=== PATIENT | male | born 1965 | race Caucasian/White ===

== ENCOUNTER 2025-02-13 18:09 | Inpatient (IN) | payer BC ==
[2025-02-13 18:33] VITALS: BMI 24.5
[2025-02-13] MEDS ORDERED: Senokot S 8.6-50 MG TAB PO PRN (19:54)
[2025-02-13] MEDS ORDERED: Calcium Carbonate 500 MG ChewTAB PO PRN (19:54)
[2025-02-13] MEDS ORDERED: Acetaminophen 325 MG TAB PO PRN (19:54)
[2025-02-13] MEDS ORDERED: Ondansetron PF 4 MG/2 ML Vial IVP PRN (19:54)
[2025-02-13] MEDS ORDERED: Nitroglycerin 0.4 MG TAB (25 Tab Bottle) SL PRN (19:56)
[2025-02-13] MEDS: Famotidine 20 MG TAB PO SCH (21:32)
[2025-02-14 04:02] LABS: #Basophils 0.05 10x3/uL (0.0-0.2); #Eosinophils 0.14 10x3/uL (0.0-0.7); #Monocytes 0.74 10x3/uL (0.11-0.59); #Neutrophils 5.67 10x3/uL (1.40-6.50); %Basophils 0.6 % (0.0-1.0); %Eosinophils 1.6 % (0.0-10.0); %Lymphocytes 22.1 % (21.0-51.0); %Monocytes 8.7 % (0.0-10.0); %Neutrophils 66.8 % (42.0-75.0); Hematocrit 36.9 % (42.0-52.0); Hemoglobin 12.6 g/dL (14.0-18.0); Mean Corpuscular Hemoglobin 29.4 pg (27.0-31.0); Mean Corpuscular Volume 86.2 fL (78.0-98.0); Platelet Count 237 10x3/uL (130-400); Red Blood Cell (RBC) Count 4.28 mill/uL (4.70-6.10); White Blood Cell (WBC) Count 8.50 10x3/uL (4.8-10.8)
[2025-02-14 04:21] LABS: ALT (SGPT) 19 U/L (Less than 45); AST (SGOT) 68 U/L (11-34); Albumin 3.5 g/dL (3.1-4.5); Alkaline Phosphatase 67 U/L (40-110); Anion Gap 11 mmol/L (10-20); BUN (Urea Nitrogen) 15 mg/dL (8.4-25.7); Bilirubin, Total 0.5 mg/dL (0.3-1.2); Calc. Creatinine Clearance 62 mL/min (70-130); Calcium 8.6 mg/dL (7.8-10.44); Carbon Dioxide 22 mmol/L (23-31); Cardiac Risk 5.8 (Less than 4.5); Chloride 109 mmol/L (98-107); Cholesterol 192 mg/dl (< 200 Desired); Globulin 2.6 g/dL (2.4-3.5); Glucose 100 mg/dL (80-115); HDL Cholesterol 33 mg/dL (>60 Neg Risk); LDL Cholesterol, Calculated 124 mg/dL; Magnesium 1.9 mg/dL (1.6-2.6); Potassium 3.7 mmol/L (3.5-5.1); Sodium 138 mmol/L (136-145); Triglycerides 173 mg/dL (Less than 150)
[2025-02-14] MEDS ORDERED: Non-Formulary Item 1 EACH (Topiramate [Topiramate] 50 MG Tablet) PO SCH (09:00)
[2025-02-14] MEDS: Aspirin 81 mg Enteric Coated Tablet PO SCH (09:02)
[2025-02-14] MEDS: Magnesium 2 GM/50 ML(in water) 2 GM in Premix 1 BAG IVPB SCH (09:02)
[2025-02-14] MEDS ORDERED: Communication Order-Pharmacy FS SCH (19:30)
[2025-02-15 04:33] LABS: #Basophils 0.04 10x3/uL (0.0-0.2); #Eosinophils 0.29 10x3/uL (0.0-0.7); #Monocytes 0.81 10x3/uL (0.11-0.59); #Neutrophils 4.99 10x3/uL (1.40-6.50); %Basophils 0.5 % (0.0-1.0); %Eosinophils 3.6 % (0.0-10.0); %Lymphocytes 23.5 % (21.0-51.0); %Monocytes 10.1 % (0.0-10.0); %Neutrophils 61.9 % (42.0-75.0); Hematocrit 38.8 % (42.0-52.0); Hemoglobin 12.8 g/dL (14.0-18.0); Mean Corpuscular Hemoglobin 29.2 pg (27.0-31.0); Mean Corpuscular Volume 88.4 fL (78.0-98.0); Platelet Count 236 10x3/uL (130-400); Red Blood Cell (RBC) Count 4.39 mill/uL (4.70-6.10); White Blood Cell (WBC) Count 8.05 10x3/uL (4.8-10.8)
[2025-02-15 04:47] LABS: Anion Gap 10 mmol/L (10-20); BUN (Urea Nitrogen) 16 mg/dL (8.4-25.7); Calc. Creatinine Clearance 63 mL/min (70-130); Calcium 8.6 mg/dL (7.8-10.44); Carbon Dioxide 24 mmol/L (23-31); Chloride 108 mmol/L (98-107); Glucose 94 mg/dL (80-115); Potassium 3.5 mmol/L (3.5-5.1); Sodium 138 mmol/L (136-145)
[2025-02-15] MEDS ORDERED: Lidocaine 1% (PF) 30 ML VIAL ONE (06:20)
[2025-02-15] MEDS ORDERED: Adenosine 6 mg (2 mL) VIAL ONE (06:20)
[2025-02-15] MEDS ORDERED: Heparin 10,000 UNITS/ 10 ML VIAL ONE (06:20)
[2025-02-15] MEDS ORDERED: PHENYLEPHRINE-NS 100 MCG/ML 10 ML SYRINGE ONE (06:21)
[2025-02-15] MEDS ORDERED: Nitroglycerin 50 MG/250 ML BOT 250 ML ONE (06:21)
[2025-02-15] MEDS: Potassium Chloride 20 MEQ in Premix 1 BAG IVPB SCH (09:31)
[2025-02-15] MEDS ORDERED: Iopamidol 370 76% 100 ML VIAL ONE (11:13)
[2025-02-15] MEDS ORDERED: Communication Order-Pharmacy FS SCH (18:26)
[2025-02-16 04:28] LABS: #Basophils 0.05 10x3/uL (0.0-0.2); #Eosinophils 0.26 10x3/uL (0.0-0.7); #Monocytes 0.78 10x3/uL (0.11-0.59); #Neutrophils 4.69 10x3/uL (1.40-6.50); %Basophils 0.7 % (0.0-1.0); %Eosinophils 3.5 % (0.0-10.0); %Lymphocytes 23.0 % (21.0-51.0); %Monocytes 10.4 % (0.0-10.0); %Neutrophils 62.1 % (42.0-75.0); Hematocrit 38.5 % (42.0-52.0); Hemoglobin 12.5 g/dL (14.0-18.0); Mean Corpuscular Hemoglobin 28.7 pg (27.0-31.0); Mean Corpuscular Volume 88.5 fL (78.0-98.0); Platelet Count 211 10x3/uL (130-400); Red Blood Cell (RBC) Count 4.35 mill/uL (4.70-6.10); White Blood Cell (WBC) Count 7.53 10x3/uL (4.8-10.8)
[2025-02-16 04:56] LABS: Anion Gap 12 mmol/L (10-20); BUN (Urea Nitrogen) 14 mg/dL (8.4-25.7); Calc. Creatinine Clearance 59 mL/min (70-130); Calcium 8.6 mg/dL (7.8-10.44); Carbon Dioxide 22 mmol/L (23-31); Chloride 109 mmol/L (98-107); Glucose 95 mg/dL (80-115); Potassium 4.5 mmol/L (3.5-5.1); Sodium 138 mmol/L (136-145)
[2025-02-16 07:15] LABS: Hb (HGBA1c) 3839.2139 umol/L
[2025-02-17 05:11] LABS: Anion Gap 12 mmol/L (10-20); BUN (Urea Nitrogen) 16 mg/dL (8.4-25.7); Calc. Creatinine Clearance 64 mL/min (70-130); Calcium 8.9 mg/dL (7.8-10.44); Carbon Dioxide 24 mmol/L (23-31); Chloride 105 mmol/L (98-107); Glucose 88 mg/dL (80-115); Potassium 4.1 mmol/L (3.5-5.1); Sodium 137 mmol/L (136-145)
[2025-02-17 05:42] LABS: #Basophils 0.04 10x3/uL (0.0-0.2); #Eosinophils 0.22 10x3/uL (0.0-0.7); #Monocytes 0.67 10x3/uL (0.11-0.59); #Neutrophils 4.14 10x3/uL (1.40-6.50); %Basophils 0.6 % (0.0-1.0); %Eosinophils 3.3 % (0.0-10.0); %Lymphocytes 23.5 % (21.0-51.0); %Monocytes 10.1 % (0.0-10.0); %Neutrophils 62.3 % (42.0-75.0); Hematocrit 40.1 % (42.0-52.0); Hemoglobin 13.4 g/dL (14.0-18.0); Mean Corpuscular Hemoglobin 29.3 pg (27.0-31.0); Mean Corpuscular Volume 87.7 fL (78.0-98.0); Platelet Count 243 10x3/uL (130-400); Red Blood Cell (RBC) Count 4.57 mill/uL (4.70-6.10); White Blood Cell (WBC) Count 6.64 10x3/uL (4.8-10.8)
[2025-02-18] MEDS ORDERED: PHENYLEPHRINE-NS 100 MCG/ML 10 ML SYRINGE ONE (06:36)
[2025-02-18] MEDS ORDERED: Heparin 10,000 UNITS/1 ML VIAL 30,000 UNITS in Sodium Chloride 0.9% 1,000 ML FS SCH (06:45)
[2025-02-18] MEDS ORDERED: NOREPINEPHRINE 8 MG/250 ML-D5W 250 ML ONE (07:13)
[2025-02-18] MEDS ORDERED: CEFAZOLIN 2 GM VIAL ONE (07:24)
[2025-02-18] MEDS ORDERED: PROPOFOL 20 ML ONE ×2 (07:40→10:20)
[2025-02-18] MEDS ORDERED: Rocuronium Bromide 10 MG/ML (10ML VIAL) ONE ×2 (07:41→10:22)
[2025-02-18] MEDS ORDERED: Heparin 30,000 units/30 ml VIAL ONE (08:10)
[2025-02-18] MEDS ORDERED: Thrombin 5000 UNITS/5 ML VIAL ONE (08:10)
[2025-02-18] MEDS ORDERED: Calcium Chloride 1 GM/10 ML Abboject SYRINGE ONE (08:10)
[2025-02-18] MEDS ORDERED: Glycopyrrolate 0.2 MG/ML 5 ML SYRINGE ONE (08:10)
[2025-02-18] MEDS ORDERED: Heparin 5,000 UNITS/ML VIAL ONE (08:10)
[2025-02-18] MEDS ORDERED: Cardioplegic Soln 1,000 ML BAG ONE (08:10)
[2025-02-18] MEDS ORDERED: CEFAZOLIN 1 GM VIAL ONE (11:59)
[2025-02-18] MEDS ORDERED: hydrALAZINE 20 MG/ML VIAL SLOW IVP PRN (12:54)
[2025-02-18] MEDS ORDERED: Bisacodyl 10 MG SUPP PR PRN (12:54)
[2025-02-18] MEDS ORDERED: Phenylephrine 40 MG/NS 250 ML 250 ML IVPB PRN (12:54)
[2025-02-18] MEDS ORDERED: Nitroglycerin 50 MG/250 ML BOT 250 ML IVPB PRN (12:54)
[2025-02-18] MEDS ORDERED: Guaifenesin DM 100-10/5 ML UDCUP PO PRN (12:54)
[2025-02-18] MEDS ORDERED: niCARdipine 25 MG in Sodium Chloride 0.9% 250 ML 250 ML IVPB PRN (12:54)
[2025-02-18] MEDS ORDERED: Albumin 5% 12.5 GM (250 mL) BOT IVPB PRN (12:54)
[2025-02-18] MEDS ORDERED: Mag-Al 1200 mg/1200 mg/30 ML UDCUP PO PRN (12:54)
[2025-02-18] MEDS ORDERED: Electrolyte Replacement Protocol 1 EACH FS SCH (13:00)
[2025-02-18] MEDS ORDERED: Dextrose 50% Abboject 50 ML SYRINGE SLOW IVP PRN (13:15)
[2025-02-18] MEDS ORDERED: INSULIN REGULAR IN 0.9 % NACL 100 UNITS in Premix 1 BAG IVPB SCH (13:15)
[2025-02-18] MEDS ORDERED: Glucagon 1 MG/ML KIT SC PRN (13:15)
[2025-02-18 13:29] LABS: ALV-art Gradient 285.975 mmHg (0-20); Actual Bicarbonate (HCO3a) 19.0 mEq/L (22-28); Base Excess (BEa) -7.3 mEq/L (-2.0 to +3.0); CO2 Tension 40.9 mmHg (35.0-45.0); Calcium, Ionized (arterial) 1.14 mmol/L (1.12-1.30); Hematocrit-ABG 40 % (42.0-52.0); Hemoglobin (Hb) 13.5 g/dL (14.0-18.0); O2 Tension (PaO2), arterial 90.7 mmHg (> 80.0); Potassium - ABG Lab 4.41 mmol/L (3.70-5.30); Puncture Site Arterial Line; pH, Arterial 7.284 (7.35-7.45)
[2025-02-18 13:34] LABS: #Basophils 0.07 10x3/uL (0.0-0.2); #Eosinophils 0.08 10x3/uL (0.0-0.7); #Monocytes 1.06 10x3/uL (0.11-0.59); #Neutrophils 18.08 10x3/uL (1.40-6.50); %Basophils 0.3 % (0.0-1.0); %Eosinophils 0.4 % (0.0-10.0); %Lymphocytes 9.4 % (21.0-51.0); %Monocytes 4.9 % (0.0-10.0); %Neutrophils 83.9 % (42.0-75.0); Hematocrit 37.7 % (42.0-52.0); Hemoglobin 12.5 g/dL (14.0-18.0); Mean Corpuscular Hemoglobin 29.3 pg (27.0-31.0); Mean Corpuscular Volume 88.3 fL (78.0-98.0); Platelet Count 218 10x3/uL (130-400); Red Blood Cell (RBC) Count 4.27 mill/uL (4.70-6.10); White Blood Cell (WBC) Count 21.56 10x3/uL (4.8-10.8)
[2025-02-18] MEDS: NS 0.9% w/ 20 MEQ KCL 1,000 ML IV SCH (13:39)
[2025-02-18] MEDS: Magnesium 2 GM/50 ML(in water) 2 GM in Premix 1 BAG IVPB SCH (13:39)
[2025-02-18] MEDS: Post-Op Insulin Drip Protocol IVPB ONE (13:40)
[2025-02-18] MEDS: Sodium Bicarb 50 MEQ/50 ML Abboject 8.4% SYRINGE IVP SCH (13:45)
[2025-02-18 13:49] LABS: Anion Gap 12 mmol/L (10-20); BUN (Urea Nitrogen) 19 mg/dL (8.4-25.7); Calc. Creatinine Clearance 73 mL/min (70-130); Calcium 7.8 mg/dL (7.8-10.44); Carbon Dioxide 19 mmol/L (23-31); Chloride 110 mmol/L (98-107); Glucose 152 mg/dL (80-115); Potassium 4.4 mmol/L (3.5-5.1); Sodium 137 mmol/L (136-145)
[2025-02-18 14:07] LABS: INR-International Normal Ratio 1.3; Prothrombin Time 16.6 sec (12.0-14.7)
[2025-02-18 14:08] LABS: PTT 33.9 sec (22.9-36.1)
[2025-02-18] MEDS: Albumin 5% 12.5 GM (250 mL) BOT IVPB PRN (14:15)
[2025-02-18] MEDS: NOREPINEPHRINE 8 MG/250 ML-D5W 250 ML IVPB PRN (15:19)
[2025-02-18] MEDS: Ondansetron PF 4 MG/2 ML Vial IVP PRN (15:40)
[2025-02-18 15:54] LABS: Actual Bicarbonate (HCO3a) 18.5 mEq/L (22-28); Base Excess (BEa) -8.5 mEq/L (-2.0 to +3.0); CO2 Tension 43.8 mmHg (35.0-45.0); Calcium, Ionized (arterial) 1.09 mmol/L (1.12-1.30); Hematocrit-ABG 37 % (42.0-52.0); Hemoglobin (Hb) 12.7 g/dL (14.0-18.0); O2 Tension (PaO2), arterial 73.0 mmHg (> 80.0); Potassium - ABG Lab 3.60 mmol/L (3.70-5.30); pH, Arterial 7.243 (7.35-7.45)
[2025-02-18 16:10] LABS: ALV-art Gradient 157.450 mmHg (0-20); Puncture Site Arterial Line
[2025-02-18 19:22] LABS: Hematocrit 36.2 % (42.0-52.0); Hemoglobin 12.2 g/dL (14.0-18.0)
[2025-02-18 19:31] LABS: Potassium 3.9 mmol/L (3.5-5.1)
[2025-02-18] MEDS: Famotidine/PF 20 mg/2ml Vial SLOW IVP SCH (19:50)
[2025-02-18] MEDS: Senokot S 8.6-50 MG TAB PO SCH (19:51)
[2025-02-18] MEDS: Acetaminophen 325 MG TAB PO PRN (22:26)
[2025-02-18] MEDS: Potassium Chloride 20 MEQ (100 mL) BAG IVPB PRN (23:39)
[2025-02-19 05:19] LABS: #Basophils 0.03 10x3/uL (0.0-0.2); #Eosinophils Less than 0.03 10x3/uL (0.0-0.7); #Monocytes 1.36 10x3/uL (0.11-0.59); #Neutrophils 14.98 10x3/uL (1.40-6.50); %Basophils 0.2 % (0.0-1.0); %Eosinophils 0.0 % (0.0-10.0); %Lymphocytes 4.1 % (21.0-51.0); %Monocytes 7.9 % (0.0-10.0); %Neutrophils 87.2 % (42.0-75.0); Hematocrit 35.1 % (42.0-52.0); Hemoglobin 11.4 g/dL (14.0-18.0); Mean Corpuscular Hemoglobin 28.8 pg (27.0-31.0); Mean Corpuscular Volume 88.6 fL (78.0-98.0); Platelet Count 292 10x3/uL (130-400); Red Blood Cell (RBC) Count 3.96 mill/uL (4.70-6.10); White Blood Cell (WBC) Count 17.17 10x3/uL (4.8-10.8)
[2025-02-19] MEDS: Transdermal Patch Removal TOP SCH (05:57)
[2025-02-19 06:21] LABS: Anion Gap 14 mmol/L (10-20); BUN (Urea Nitrogen) 20 mg/dL (8.4-25.7); Calc. Creatinine Clearance 62 mL/min (70-130); Calcium 8.3 mg/dL (7.8-10.44); Carbon Dioxide 21 mmol/L (23-31); Chloride 105 mmol/L (98-107); Glucose 117 mg/dL (80-115); Magnesium 2.6 mg/dL (1.6-2.6); Potassium 4.7 mmol/L (3.5-5.1); Sodium 135 mmol/L (136-145)
[2025-02-19] MEDS: Magnesium 2 GM/50 ML(in water) 2 GM in Premix 1 BAG IVPB SCH (08:18)
[2025-02-19] MEDS: Aspirin 325 MG TAB PO SCH (08:26)
[2025-02-19] MEDS: Heparin 5,000 UNITS/ML VIAL SC SCH (08:58)
[2025-02-19] MEDS ORDERED: Insulin Glargine 30 UNITS/0.3 ML VIAL SC PRN (13:10)
[2025-02-19] MEDS ORDERED: Milk Of Magnesia 30 ML UDCUP PO PRN (14:12)
[2025-02-19] MEDS ORDERED: Nitroglycerin 0.4 MG TAB (25 Tab Bottle) SL PRN (14:12)
[2025-02-19] MEDS ORDERED: Mineral Oil ENEMA PR PRN (14:12)
[2025-02-19] MEDS ORDERED: Artificial Tear Ophth Sol 15 ML BOT EA EYE PRN (14:12)
[2025-02-19] MEDS ORDERED: diphenhydrAMINE 25 MG CAP PO PRN (14:12)
[2025-02-19] MEDS ORDERED: Transdermal Patch Removal TOP SCH (21:00)
[2025-02-20 03:58] LABS: #Basophils 0.03 10x3/uL (0.0-0.2); #Eosinophils Less than 0.03 10x3/uL (0.0-0.7); #Monocytes 1.27 10x3/uL (0.11-0.59); #Neutrophils 11.93 10x3/uL (1.40-6.50); %Basophils 0.2 % (0.0-1.0); %Eosinophils 0.1 % (0.0-10.0); %Lymphocytes 7.2 % (21.0-51.0); %Monocytes 8.8 % (0.0-10.0); %Neutrophils 83.2 % (42.0-75.0); Hematocrit 32.1 % (42.0-52.0); Hemoglobin 10.3 g/dL (14.0-18.0); Mean Corpuscular Hemoglobin 28.9 pg (27.0-31.0); Mean Corpuscular Volume 90.2 fL (78.0-98.0); Platelet Count 177 10x3/uL (130-400); Red Blood Cell (RBC) Count 3.56 mill/uL (4.70-6.10); White Blood Cell (WBC) Count 14.36 10x3/uL (4.8-10.8)
[2025-02-20 04:15] LABS: Anion Gap 16 mmol/L (10-20); BUN (Urea Nitrogen) 25 mg/dL (8.4-25.7); Calc. Creatinine Clearance 58 mL/min (70-130); Calcium 8.5 mg/dL (7.8-10.44); Carbon Dioxide 25 mmol/L (23-31); Chloride 100 mmol/L (98-107); Glucose 138 mg/dL (80-115); Magnesium 2.7 mg/dL (1.6-2.6); Potassium 4.5 mmol/L (3.5-5.1); Sodium 136 mmol/L (136-145)
[2025-02-20] MEDS ORDERED: Magnesium 2 GM/50 ML(in water) 2 GM in Premix 1 BAG IVPB SCH (09:00)
[2025-02-20 11:27] VITALS: BMI 25.7
[2025-02-20] MEDS: Furosemide 40 MG (4 mL) VIAL SLOW IVP SCH (18:35)
[2025-02-21 04:56] LABS: #Basophils 0.03 10x3/uL (0.0-0.2); #Eosinophils 0.07 10x3/uL (0.0-0.7); #Monocytes 0.86 10x3/uL (0.11-0.59); #Neutrophils 8.55 10x3/uL (1.40-6.50); %Basophils 0.3 % (0.0-1.0); %Eosinophils 0.7 % (0.0-10.0); %Lymphocytes 10.4 % (21.0-51.0); %Monocytes 8.1 % (0.0-10.0); %Neutrophils 80.1 % (42.0-75.0); Hematocrit 31.2 % (42.0-52.0); Hemoglobin 10.3 g/dL (14.0-18.0); Mean Corpuscular Hemoglobin 29.1 pg (27.0-31.0); Mean Corpuscular Volume 88.1 fL (78.0-98.0); Platelet Count 197 10x3/uL (130-400); Red Blood Cell (RBC) Count 3.54 mill/uL (4.70-6.10); White Blood Cell (WBC) Count 10.66 10x3/uL (4.8-10.8)
[2025-02-21 05:14] LABS: Anion Gap 15 mmol/L (10-20); BUN (Urea Nitrogen) 24 mg/dL (8.4-25.7); Calc. Creatinine Clearance 62 mL/min (70-130); Calcium 8.4 mg/dL (7.8-10.44); Carbon Dioxide 27 mmol/L (23-31); Chloride 98 mmol/L (98-107); Glucose 110 mg/dL (80-115); Magnesium 2.3 mg/dL (1.6-2.6); Potassium 3.9 mmol/L (3.5-5.1); Sodium 136 mmol/L (136-145)
[2025-02-21] MEDS: Potassium Phosphate 22 MMOL in Sodium Chloride 0.9% 250 ML 250 ML IVPB SCH (06:36)
[2025-02-21] MEDS: Furosemide 20 MG (2 mL) VIAL SLOW IVP SCH (08:11)
[2025-02-22 03:51] LABS: #Basophils 0.06 10x3/uL (0.0-0.2); #Eosinophils 0.20 10x3/uL (0.0-0.7); #Monocytes 0.88 10x3/uL (0.11-0.59); #Neutrophils 4.82 10x3/uL (1.40-6.50); %Basophils 0.8 % (0.0-1.0); %Eosinophils 2.8 % (0.0-10.0); %Lymphocytes 16.5 % (21.0-51.0); %Monocytes 12.3 % (0.0-10.0); %Neutrophils 67.3 % (42.0-75.0); Hematocrit 37.5 % (42.0-52.0); Hemoglobin 11.7 g/dL (14.0-18.0); Mean Corpuscular Hemoglobin 29.3 pg (27.0-31.0); Mean Corpuscular Volume 93.8 fL (78.0-98.0); Platelet Count 204 10x3/uL (130-400); Red Blood Cell (RBC) Count 4.00 mill/uL (4.70-6.10); White Blood Cell (WBC) Count 7.16 10x3/uL (4.8-10.8)
[2025-02-22 04:08] LABS: Anion Gap 14 mmol/L (10-20); BUN (Urea Nitrogen) 19 mg/dL (8.4-25.7); Calc. Creatinine Clearance 74 mL/min (70-130); Calcium 8.5 mg/dL (7.8-10.44); Carbon Dioxide 20 mmol/L (23-31); Chloride 105 mmol/L (98-107); Glucose 97 mg/dL (80-115); Magnesium 2.1 mg/dL (1.6-2.6); Potassium 4.1 mmol/L (3.5-5.1); Sodium 135 mmol/L (136-145)
[2025-02-22 16:02] LABS: Bacteria/HPF None Seen HPF (None Seen); CAUTI Indications for Culture Fever or rigors; Glucose, Urine (Dipstick) Normal (Negative); Leukocyte Negative Leu/uL (Negative); Protein, Urine (Dipstick) 20 mg/dL (Neg-Trace); Specific Gravity, Urine 1.018 (1.002-1.036); WBC/HPF 0-3 HPF (0-3)
[2025-02-22 16:03] LABS: Urine Culture Reflex No No
[2025-02-22] MEDS: Diclofenac 1% 50 GM TOPICAL GEL TP SCH (18:16)
[2025-02-22] MEDS: Benzonatate 100 MG CAP PO SCH (21:10)
[2025-02-22] MEDS: Amoxicillin/Potassium Clav 875 MG TAB PO SCH (21:10)
[2025-02-23 04:43] LABS: #Basophils 0.03 10x3/uL (0.0-0.2); #Eosinophils 0.29 10x3/uL (0.0-0.7); #Monocytes 0.82 10x3/uL (0.11-0.59); #Neutrophils 4.46 10x3/uL (1.40-6.50); %Basophils 0.4 % (0.0-1.0); %Eosinophils 3.9 % (0.0-10.0); %Lymphocytes 23.5 % (21.0-51.0); %Monocytes 11.1 % (0.0-10.0); %Neutrophils 60.6 % (42.0-75.0); Hematocrit 31.4 % (42.0-52.0); Hemoglobin 10.5 g/dL (14.0-18.0); Mean Corpuscular Hemoglobin 29.2 pg (27.0-31.0); Mean Corpuscular Volume 87.5 fL (78.0-98.0); Platelet Count 267 10x3/uL (130-400); Red Blood Cell (RBC) Count 3.59 mill/uL (4.70-6.10); White Blood Cell (WBC) Count 7.37 10x3/uL (4.8-10.8)
[2025-02-23 05:14] LABS: Anion Gap 12 mmol/L (10-20); BUN (Urea Nitrogen) 23 mg/dL (8.4-25.7); Calc. Creatinine Clearance 63 mL/min (70-130); Calcium 8.8 mg/dL (7.8-10.44); Carbon Dioxide 22 mmol/L (23-31); Chloride 107 mmol/L (98-107); Glucose 95 mg/dL (80-115); Magnesium 2.0 mg/dL (1.6-2.6); Potassium 4.0 mmol/L (3.5-5.1); Sodium 137 mmol/L (136-145)
[2025-02-23] MEDS: Magnesium 2 GM/50 ML(in water) 2 GM in Premix 1 BAG IVPB SCH (08:03)
[2025-02-23 13:00] LABS: Magnesium 2.3 mg/dL (1.6-2.6); Potassium 4.0 mmol/L (3.5-5.1)
[2025-02-24 14:38] VITALS: BP 115/72; TEMP 97.6
== END 2025-02-24 14:39 | disposition home or self-care (01) | DRG 233 ==
LOC: 2NO 18:12 → UNDOADMIN 18:12 → CCU 02-18 07:28 → 2NO 02-18 07:28 → CCU 02-18 12:57 → PCU 02-19 18:40 → CCU 02-19 18:40 → UNDODISIN 02-24 14:39
PROVIDERS: ADMIT Internal Medicine; ATTEND Hospitalist
PROC: 4A023N7 Measurement of Cardiac Sampling and Pressure, Left Heart, Percutaneous Approach (ICD-10-PCS; principal; 2025-02-13)
PROC: 0210093 Bypass Coronary Artery, One Artery from Coronary Artery with Autologous Venous Tissue, Open Approach (ICD-10-PCS; 2025-02-13)
PROC: B2111ZZ Fluoroscopy of Multiple Coronary Arteries using Low Osmolar Contrast (ICD-10-PCS; 2025-02-13)
PROC: 021 Heart and Great Vessels, Bypass (ICD-10-PCS; 2025-02-13)
PROC: B2151ZZ Fluoroscopy of Left Heart using Low Osmolar Contrast (ICD-10-PCS; 2025-02-13)
PROC: 02100A8 Bypass Coronary Artery, One Artery from Right Internal Mammary with Autologous Arterial Tissue, Open Approach (ICD-10-PCS; 2025-02-18)
PROC: 0PQ00ZZ Repair Sternum, Open Approach (ICD-10-PCS; 2025-02-18)
PROC: 5A1221Z Performance of Cardiac Output, Continuous (ICD-10-PCS; 2025-02-18)
PROC: 02L70CK Occlusion of Left Atrial Appendage with Extraluminal Device, Open Approach (ICD-10-PCS; 2025-02-18)
PROC: B24BZZ4 Ultrasonography of Heart with Aorta, Transesophageal (ICD-10-PCS; 2025-02-18)
PROC: 3E080GC Introduction of Other Therapeutic Substance into Heart, Open Approach (ICD-10-PCS; 2025-02-18)
PROC: 30233J1 Transfusion of Nonautologous Serum Albumin into Peripheral Vein, Percutaneous Approach (ICD-10-PCS; 2025-02-18)
PROC: 3E03329 Introduction of Other Anti-infective into Peripheral Vein, Percutaneous Approach (ICD-10-PCS; 2025-02-18)
PROC: 3E033XZ Introduction of Vasopressor into Peripheral Vein, Percutaneous Approach (ICD-10-PCS; 2025-02-18)
PROC: 4A03351 Measurement of Arterial Flow, Peripheral, Percutaneous Approach (ICD-10-PCS; 2025-02-18)
PROC: 5A1935Z Respiratory Ventilation, Less than 24 Consecutive Hours (ICD-10-PCS; 2025-02-18)
PROC: 0BH17EZ Insertion of Endotracheal Airway into Trachea, Via Natural or Artificial Opening (ICD-10-PCS; 2025-02-18)
DX: I21.4 Non-ST elevation (NSTEMI) myocardial infarction (principal); J96.01 Acute respiratory failure with hypoxia; N17.9 Acute kidney failure, unspecified; N18.9 Chronic kidney disease, unspecified; E16.2 Hypoglycemia, unspecified; I80.8 Phlebitis and thrombophlebitis of other sites; I12.9 Hypertensive chronic kidney disease with stage 1 through stage 4 chronic kidney disease, or unspecified chronic kidney disease; Z87.820 Personal history of traumatic brain injury; Z88.5 Allergy status to narcotic agent; Z98.890 Other specified postprocedural states; Z86.16 Personal history of COVID-19; Z79.899 Other long term (current) drug therapy
CPT/HCPCS: 36415; 36416; 71045; 80048; 80053; 80061; 81001; 82805; 83036; 83735; 83880; 84100; 84484; 85025; 85610; 85730; 86850; 86900; 86901; 87633; 93005; 93010; 93306; 93458; 93798; 94002; 94150; 94640; 94760; 97139; 99152; A4311; C1751; C1769; C1889; C1894; J0153; J0169; J0461; J0665; J0690; J1642; J1644; J1815; J1940; J2250; J2371; J2405; J2440; J2704; J3010; J3373; J3475; J3480; J7030; J7050; J7120; J7620; P9045; Q9967; S0017